=== PATIENT | male | born 1975 | race Hispanic/Latino ===

== ENCOUNTER 2020-06-11 03:16 | Emergency (ER) | payer BC ==
--- NOTE | 2020-06-11 04:50 | EDPHYS ---
Physician Documentation [facility] Name: Fernando Donis Jr Age: 45 yrs Sex: Male : 1975 Arrival Date: 06/11/2020 Time: 03:17 Bed 17 Private MD: ED Physician Dameon Thakkar HPI: 06/11 21:50 This 45 yrs old Male presents to ER via Ambulatory with complaints of General tw4 Weakness, sweats, Cough. 21:50 The patient or guardian reports airway noise, cough, that is constant. Onset: The tw4 symptoms/episode began/occurred yesterday. Severity of symptoms: At their worst the symptoms were moderate, in the emergency department the symptoms are unchanged. The patient has not experienced similar symptoms in the past. - Immunization history:: Adult Immunizations up to date. - Social history:: Smoking status: Patient denies any tobacco usage or history of. ROS: 21:50 Constitutional: Negative for fever, chills, and weight loss, Eyes: Negative for injury, tw4 pain, redness, and discharge, Cardiovascular: Negative for chest pain, palpitations, and edema, Abdomen/GI: Negative for abdominal pain, nausea, vomiting, diarrhea, and constipation, Back: Negative for injury and pain, MS/Extremity: Negative for injury and deformity, Skin: Negative for injury, rash, and discoloration, Neuro: Negative for headache, weakness, numbness, tingling, and seizure. 21:50 Respiratory: Positive for cough, Negative for dyspnea on exertion, hemoptysis, orthopnea, pleurisy, shortness of breath. Exam: 21:50 Constitutional: This is a well developed, well nourished patient who is awake, alert, tw4 and in no acute distress. Head/Face: Normocephalic, atraumatic. Chest/axilla: Normal chest wall appearance and motion. Nontender with no deformity. No lesions are appreciated. Cardiovascular: Regular rate and rhythm with a normal S1 and S2. No gallops, murmurs, or rubs. Normal PMI, no JVD. No pulse deficits. Respiratory: Lungs have equal breath sounds bilaterally, clear to auscultation and percussion. No rales, rhonchi or wheezes noted. No increased work of breathing, no retractions or nasal flaring. Abdomen/GI: Soft, non-tender, with normal bowel sounds. No distension or tympany. No guarding or rebound. No evidence of tenderness throughout. Back: No spinal tenderness. No costovertebral tenderness. Full range of motion. MS/ Extremity: Pulses equal, no cyanosis. Neurovascular intact. Full, normal range of motion. Neuro: Awake and alert, GCS 15, oriented to person, place, time, and situation. Cranial nerves II-XII grossly intact. Motor strength 5/5 in all extremities. Sensory grossly intact. Cerebellar exam normal. Normal gait. Vital Signs: 03:25 Weight 77.11 kg; Height 5 ft. 7 in. (170.18 cm); dm5 03:25 BP 102 / 75; Pulse 61; Resp 18; Temp 97.5; Pulse Ox 98% ; ea 04:50 BP 104 / 66; Pulse 58; Resp 16; Pulse Ox 98% on R/A; ea 03:25 Body Mass Index 26.63 (77.11 kg, 170.18 cm) dm5 MDM: 03:57 Patient medically screened. tw4 22:08 Differential Diagnosis: Obstructed Airway Bronchitis Otitis Media Asthma Exacerbation. tw4 Data reviewed: vital signs, nurses notes. Data reviewed: lab test result(s), Flu: negative. Counseling: I had a detailed discussion with the patient and/or guardian regarding: the historical points, exam findings, and any diagnostic results supporting the discharge/admit diagnosis, lab results, radiology results. Special discussion: I discussed with the patient/guardian in detail that at this point there is no indication for admission to the hospital. It is understood, however, that if the symptoms persist or worsen the patient needs to return immediately for re-evaluation. 06/11 03:30 Order name: Flu; Complete Time: 04:45 ea 06/11 04:45 Interpretation: Within normal limits. tw4 06/11 03:31 Order name: COVID-19 ea 06/11 03:30 Order name: XRAY Chest (1 view) ea Administered Medications: No medications were administered Disposition: 06/11/20 04:50 Discharged to Home. Impression: Other viral infections of unspecified site. - Condition is Stable. - Discharge Instructions: Viral Respiratory Infection. - Prescriptions for Tessalon Perles 100 mg Oral Capsule - take 1 capsule by ORAL route every 8 hours As needed; 15 capsule. - Work release form, Medication Reconciliation Form, Thank You Letter, Antibiotic Education, Prescription Opioid Use form. - Follow up: Private Physician; When: Upon discharge from the Emergency Department; Reason: Recheck today's complaints, Continuance of care, Re-evaluation by your physician. - Problem is new. - Symptoms are unchanged. Signatures: Dispatcher [employer] Mackenzie Escoto RN RN ea Wadley, Terrence, MD MD tw4 Corrections: (The following items were deleted from the chart) 05:06 04:50 06/11/2020 04:50 Discharged to Home. Impression: Other viral infections of ea unspecified site. Condition is Stable. Forms are Medication Reconciliation Form, Thank You Letter, Antibiotic Education, Prescription Opioid Use. Follow up: Private Physician; When: Upon discharge from the Emergency Department; Reason: Recheck today's complaints, Continuance of care, Re-evaluation by your physician. Problem is new. Symptoms are unchanged. tw4
--- NOTE | 2020-06-11 04:50 | ER ---
Nurse's Notes [facility] Name: Fernando Donis Jr Age: 45 yrs Sex: Male : 1975 Arrival Date: 06/11/2020 Time: 03:17 Bed 17 Private MD: Diagnosis: Other viral infections of unspecified site Presentation: 06/11 03:25 Chief complaint: Patient states: coughing, excessive sweating especially at night, dm5 fatigue, denies being around people that are sick. Coronavirus screen: Client denies travel out of the [place] in the last 14 days. cough unrelated to allergies, fatigue. Ebola Screen: Patient negative for fever greater than or equal to 101.5 degrees Fahrenheit, and additional compatible Ebola Virus Disease symptoms Patient denies exposure to infectious person. Patient denies travel to an Ebola-affected area in the 21 days before illness onset. No symptoms or risks identified at this time. Initial Sepsis Screen: Does the patient meet any 2 criteria? No. Patient's initial sepsis screen is negative. Does the patient have a suspected source of infection? Yes: Productive cough/pneumonia. Risk Assessment: Do you want to hurt yourself or someone else? Patient reports no desire to harm self or others. Onset of symptoms was June 08, 2020. 03:25 Method Of Arrival: Ambulatory dm5 03:25 Acuity: GLEN 3 dm5 03:25 Coronavirus screen: Client presents with at least one sign or symptom that may indicate ea coronavirus-19. Standard/surgical mask placed on the client. Ebola Screen: No symptoms or risks identified at this time. Initial Sepsis Screen: Does the patient meet any 2 criteria?. 03:25 Method Of Arrival: Ambulatory ea - Immunization history:: Adult Immunizations up to date. - Social history:: Smoking status: Patient denies any tobacco usage or history of. Screenin:27 Abuse screen: Denies threats or abuse. Nutritional screening: No deficits noted. ea Tuberculosis screening: No symptoms or risk factors identified. Fall Risk None identified. Assessment: 03:28 General: Appears in no apparent distress. Behavior is appropriate for age. Pain: ea Complains of pain in body aches. Neuro: Level of Consciousness is awake, alert, obeys commands, Oriented to person, place, time, situation. Cardiovascular: Patient's skin is warm and dry. Respiratory: Airway is patent Respiratory effort is even, unlabored, Respiratory pattern is regular, symmetrical. Derm: Skin is dry, Skin is pale, Skin temperature is warm. 04:50 Reassessment: Patient and/or family updated on plan of care and expected duration. Pain ea level reassessed. Patient is alert, oriented x 3, equal unlabored respirations, skin warm/dry/pink. 05:05 Reassessment: Patient and/or family updated on plan of care and expected duration. Pain ea level reassessed. Patient is alert, oriented x 3, equal unlabored respirations, skin warm/dry/pink. Discharge instruction given to patient, verbalized the understanding of instruction. Pt left ED ambulatory tolerating well. Vital Signs: 03:25 Weight 77.11 kg; Height 5 ft. 7 in. (170.18 cm); dm5 03:25 BP 102 / 75; Pulse 61; Resp 18; Temp 97.5; Pulse Ox 98% ; ea 04:50 BP 104 / 66; Pulse 58; Resp 16; Pulse Ox 98% on R/A; ea 03:25 Body Mass Index 26.63 (77.11 kg, 170.18 cm) dm5 ED Course: 03:17 Patient arrived in ED. am2 03:25 Mackenzie Lundberg, RN is Primary Nurse. ea 03:26 Triage completed. dm5 03:27 Arm band placed on right wrist. Patient placed in an exam room, on a stretcher, on ea pulse oximetry. 03:28 Patient has correct armband on for positive identification. Placed in gown. Bed in low ea position. Call light in reach. Pulse ox on. NIBP on. 03:55 Dameon Thakkar MD is Attending Physician. tw4 04:27 XRAY Chest (1 view) In Process Unspecified. EDMS 05:04 No provider procedures requiring assistance completed. Patient did not have IV access ea during this emergency room visit. Administered Medications: No medications were administered Outcome: 04:50 Discharge ordered by . tw4 05:04 Discharged to home ambulatory. ea 05:04 Condition: stable 05:04 Discharge instructions given to patient, Instructed on discharge instructions, follow up and referral plans. medication usage, Demonstrated understanding of instructions, follow-up care, medications, Prescriptions given X 1. 05:06 Patient left the ED. ea Addendum: 06/13/2020 21:09 Addendum: COVID-19 Result: Positive result giiven to ED physician to notify pt. d m5 Physician was able to contact pt and pt was notified of positive COVID-19 swab result. Physician answered pt questions. Other: contact made earlier in the day by Dr. Connolly. Signatures: Dispatcher [employer] Lcuy Burton RN RN dm5 Arlyn Jaramillo am2 Mackenzie Lundberg RN RN Dameon Betts MD MD tw4
--- NOTE | 2020-06-11 09:35 | RAD REPORT ---
EXAM DESCRIPTION: Renan Single View06/11/2020 4:27 am CLINICAL HISTORY: cough COMPARISON: 2014 FINDINGS: The lungs appear clear of acute infiltrate. The heart is normal size IMPRESSION: No acute abnormalities displayed
[2020-06-15 12:46] VITALS: TEMP 97.5; O2SAT 98
[2020-06-15 12:48] VITALS: BP 104/66
== END 2020-06-11 05:06 | disposition home or self-care (01) ==
LOC: ER 03:16
DX: U07.1 COVID-19 (principal); B34.8 Other viral infections of unspecified site
CPT/HCPCS: 87804 ×2; 71045; 99283; U0002

== ENCOUNTER 2022-08-27 07:50 | Day surgery (SDC) | payer BC ==
[2022-08-24 15:36] LABS: Potassium 4.8 mmol/L (3.5-5.1)
[2022-08-27] MEDS ORDERED: NA CHLORIDE 0.9% 1,000 ML ONE ×2 (09:09→13:00)
[2022-08-27] MEDS ORDERED: CEFAZOLIN SODIUM 2 GM/VIAL ONE (09:09)
[2022-08-27] MEDS ORDERED: FENTANYL CITR 100 MCG/2 ML ONE ×3 (09:59→12:49)
[2022-08-27] MEDS ORDERED: propofoL 200 MG/20 ML VIAL IV ONE (09:59)
[2022-08-27] MEDS ORDERED: MIDAZOLAM HCL 2 MG/2 ML INJ ONE (09:59)
[2022-08-27] MEDS ORDERED: LIDOCAINE 2% MPF 5 ML VIAL ONE ×3 (10:01→10:55)
[2022-08-27] MEDS ORDERED: ONDANSETRON 4 MG/2 ML VIAL ONE (10:01)
[2022-08-27] MEDS ORDERED: ROCURONIUM 50 MG/5 ML VIAL IV ONE ×2 (10:02→12:37)
[2022-08-27] MEDS ORDERED: GLYCOPYRROLATE 0.2 MG/ML SYR ONE ×2 (10:03)
[2022-08-27] MEDS ORDERED: NEOSTIGMINE 1 MG/ML -10 ML VIAL ONE (10:04)
[2022-08-27] MEDS ORDERED: BUPIVACAINE 0.25% PF 10 ML VIAL ONE (10:15)
[2022-08-27] MEDS ORDERED: EPHEDRINE SULF 50 MG/ML VIAL ONE (11:21)
--- NOTE | 2022-08-27 13:08 | RAD REPORT ---
EXAM DESCRIPTION: RAD - Abdomen Single View - 08/27/2022 12:44 pm CLINICAL HISTORY: LOST NEEDLE TIP DURING LAP HERNIA REPAIR COMPARISON: Chest Single View dated 06/11/2020 TECHNIQUE: Single AP view of the abdomen. FINDINGS: Enteric tube tip seen in the upper abdomen. Linear metallic radiodensity projecting along the right paramidline, mid abdomen, arrowed, may relate to the foreign body question. Nonobstructive bowel gas pattern. No air-fluid levels, free air, or pneumatosis. No suspicious calcif ications. No significant bony abnormality. IMPRESSION: Right paramidline mid abdominal linear metallic radiodensity suggestive of the lost need le tip.
--- NOTE | 2022-08-27 13:16 | P.OP ---
Preoperative diagnosis: Periumbilical Hernia Postoperative diagnosis: Periumbilical Hernia Primary procedure: Laparoscopic Umbilical Hernia Repair with mesh Anesthesia: GETA + Local Estimated blood loss: <10cc Specimen: hernia contents Findings: ~2cm periumbilical hernia Complications: Other (endostitch misfired a needle requiring small incision to retrive needle @ umbilicus) Implants: 11.4cm Bard Round Ventralite mesh, Sorbafix Tacker 60 tacks Transferred to: Recovery Room Condition: Good
[2022-08-27] MEDS: HYDROMORPHONE HCL 1 MG/ML INJ ONE ×4 (13:23→13:55)
[2022-08-27 13:31] VITALS: O2SAT 100
[2022-08-27] MEDS ORDERED: KETOROLAC 30 MG/ML INJ ONE (13:43)
[2022-08-27] MEDS ORDERED: HYDROCODONE/APAP 10/325 TAB ONE (14:46)
[2022-08-27 15:13] VITALS: BP 99/54; TEMP 96.1
--- NOTE | 2022-08-27 17:28 | OP ---
Date of Procedure: 08/27/2022 Surgeon: Shadi Quinn MD, Preoperative Diagnosis: Periumbilical hernia. Postoperative Diagnosis: Periumbilical hernia. Procedure Performed: Laparoscopic umbilical hernia repair with mesh. Anesthesia: General endotracheal plus local. Estimated Blood Loss: Less than 10 cc. Specimen: Hernia contents. Findings: Approximately 2 cm periumbilical hernia superior to the umbilicus. Complications: There was a misfiring of an Endo Stitch with 0 V-Loc suture into the hernia where the small needle from the Endo Stitch was impaled into the tissue and unable to be retrieved laparoscopi uri as visualization was lost of the needle. As such, an x-ray was performed, which confirmed the position of the needle. The needle ultimately was retrieved in the procedure. Implant: 11.[address] mesh with Echo positioning System. SorbaFix absorbable fixatio n tacks, 60 tacks utilized. Disposition: The patient was transferred to the recovery room in good condition. Procedure In Detail: After informed consent was obtained, the patient was brought to the operating r oom, prepped and draped in the usual fashion after adequate anesthesia was achieved. An area of the left lower quadrant was anesthetized with 0.25% Marcaine, sharply incised. A 5 mm trocar was placed under direct visualization without evidence of complication. Insufflation was obtained to 15 mmHg at this time. There was no injury to vital structures upon entry into the abdomen. Additional trocar was placed in the left lower quadrant. This was a 12 mm trocar placed under direct visualization wit hout evidence of complication. The patient was positioned slightly, rolled away from positioning. T he LigaSure was used to take down the preperitoneal fat, which was incarcerated with a periumbilical herniation with extension superiorly. After this was cleaned out and all preperitoneal fat was swept away, the hernia contents were removed and sent off for pathologic examination, which was adipose ti ssue. At this point, I brought a 0 V-Loc suture and loaded on the Endo stitch. The Endo Stitch was then used to attempt to close the hernia sac imbricating the sac; however, during firing of the Endo stitch, it lost the needle. At this point, attempts were made to retrieve this laparoscopically; how ever, this was unable to be done. As such, I trimmed the suture and removed it. At this point, I dasilva d an x-ray performed to help confirm position of the needle. I then made a small supraumbilical inci haritha at this point and dissected down to the fascia at this point grasping the fascia with Rojelio cla mps. I then trimmed the fascia back using a combination of electrocautery and heavy Salcido scissors. Ultimately, the tissue was found after trimming back approximately 0.5 cm laterally. The needle was retrieved and placed on the back table and including the final counts on the peg board. At this poin t, I proceeded to close the hernia defect as well as the hernia sac using a combination of #1 Vicryl sutures and #1 PDS sutures in the umbilicus in an interrupted fashion. I then obtained re-insufflati on at this point and proceeded to inspect the area. There was no adipose tissue contained within the hernia defect and it was a closed defect at this point. I then sized 11.4 cm Bard Ventralight mesh with Echo Positioning System, found to be appropriate size. I deployed it after being brought into t he left lower quadrant trocar, deployed in the central portion of the defect, and secured with a sing le crown to the anterior abdominal wall with SorbaFix absorbable fixation tacks. I then removed the balloon deployment system, found to be intact on the back table and then secured an additional crown. A total of 60 tacks were used to secure a double crown type orientation to the anterior abdominal w all. The mesh had good apposition of the abdominal wall. At this point, the 12 mm trocar site was c losed using a Logan-Jared suture passer with 0 Vicryl in a running fashion with good approximatio n of tissues. The abdomen was desufflated under direct visualization without evidence of complicatio n. The remaining trocars were removed. All skin incisions were then copiously irrigated. The supra umbilical incision was closed using a combination of 3-0 Vicryl sutures subdermal and then subcuticul ar 4-0 Monocryl in a running fashion. All other incisions were closed with a 4-0 Monocryl in a runni ng fashion. Dermabond placed over top. The patient tolerated the procedure well without evidence of complication and the only incident was noted as above with the needle being temporarily lost in the abdominal wall and then retrieved. The patient was transferred PACU in good condition. All counts w ere correct at the end of the case. YENIFER/ROWAN Voice ID: [id number] Report ID: [id number]
--- NOTE | 2022-08-27 18:49 | EKG ---
Test Date: 2022-08-24 Test Time: 13:43:00 Hide Measuring Machine Operator: BURTON MEASUREMENT RESULTS: Intervals: Rate: 58 NC: 192 QRSD: 78 QT: 408 QTc: 400 [place]: P: 35 NC: 192 QRS: 83 T: 28 INTERPRETIVE STATEMENTS: Sinus bradycardia Otherwise normal ECG Compared to ECG 03/24/2020 08:26:15 No significant changes Electronically Signed On 08-27-22 18:43:07 PORTABLE IRRIGATION OPERATOR by Roberto Bright
== END 2022-08-27 15:05 | disposition home or self-care (01) ==
LOC: OR 07:50
PROVIDERS: ATTEND Surgery
PROC: 0WUF4JZ Supplement Abdominal Wall with Synthetic Substitute, Percutaneous Endoscopic Approach (ICD-10-PCS; principal; 2022-08-27 10:45)
DX: K42.9 Umbilical hernia without obstruction or gangrene (principal); Z95.5 Presence of coronary angioplasty implant and graft
CPT/HCPCS: 93005; 80048; 36415; 82947 ×2; 88302; 74018; 49591; J2704; J2710; J2001 ×2; J2250; J3010 ×3; J1170 ×2; J7030 ×2; J2405; C1781